=== PATIENT | female | born 1995 | race Caucasian/White ===

== ENCOUNTER 2019-01-17 15:23 | Emergency (ER) | payer BC, OTHER ==
--- OUTSIDE RECORDS SUMMARY | 2019-01-17 15:25 | XMS REPORT | Summary of Care ---
:1995 Author Organization [facility] Address [id number] [place], [place] [id number] [place] [address]- Encounter [facility]) [id number] Date(s): 01/28/18 - 01/28/18 [facility] [address] [place] [address] [address] [place] [address]- [phone] Discharge Disposition: Home or Self Care Attending Physician: Brittney Torres MD Vital Signs Most recent to oldest [Reference Range]: 1 Height 175.26 cm (01/28/18 10:42 AM) Blood Pressure [90-140/60-90 mmHg] 118/82 mmHg (01/28/18 10:42 AM) Peripheral Pulse Rate [60-100 bpm] 132 bpm *HI* (01/28/18 10:42 AM) Weight 104.545 kg (01/28/18 10:42 AM) Body Mass Index 34.04 m2 (01/28/18 10:42 AM) Problem List No data available for this section Allergies, Adverse Reactions, Alerts Substance Reaction Severity Status NKDA Active Medications ethinyl estradiol 0 Refill(s) Start Date: 01/28/18 Status: Orderedlevothyroxine 50 mcg (0.05 mg) oral tablet 50 microgram=1 tab, PO, Daily, 0 Refill(s) Start Date: 01/28/18 Status: Orderedmetoprolol tartrate 25 mg oral tablet 25 mg=1 tab, PO, Daily, 0 Refill(s) Start Date: 01/28/18 Status: Orderedtriamcinolone ACETONIDE 40 mg/mL injectable suspension 20 mg, Route: intra-ARTICULAR, ONCE, Dosing Weight 104.545, kg, Start date: 06/16 10:58:00 CDT, Stop date: 01/28/18 10:58:00 CDT Start Date: 01/28/18 Stop Date: 01/28/18 Status: Completed Results No data available for this section Immunizations No data available for this section Procedures Procedure Date Related Diagnosis Body Site Status Arthrocentesis, aspiration and/or 01/28/18 Completed injection, major joint or bursa (eg, shoulder, hip, knee, subacromial bursa); without ultrasound guidance Meniscal repair Completed [place] tooth Completed Social History Social History Type Response Substance Abuse Use: None. Employment/School Status: Employed. 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 Alcohol Current Smoking Status Never smoker; Exposure to Tobacco Smoke None; Cigarette Smoking Last 365 Days No; Reg Smoking Cessation Counseling No entered on: 01/28/18 Assessment and Plan No data available for this section
--- OUTSIDE RECORDS SUMMARY | 2019-01-17 15:25 | XMS REPORT | Continuity of Care Document ---
:1995 Author Organization [facility] Care Team Providers Name Role Phone [facility] Unavailable Unavailable Problems No Data Provided for This Section Medications Medication Details Route Status Patient Ordering Order Source Instructions Provider Date triamcinolone 20 mg, Inactive ACETONIDE 40 Route: 018 Medical mg/mL injectable intra-[facility] Group suspension CULAR, ONCE, Dosing Weight 104.545, kg, Start date: 01/28/18 10:58:00 CDT, Stop date: 01/28/18 10:58:00 CDT metoprolol 25 mg=1 Active tartrate 25 mg tab, PO, 018 Medical oral tablet Daily, 0 Group Refill(s) levothyroxine 50 50 Active mcg (0.05 mg) microgram= 018 Medical oral tablet 1 tab, PO, Group Daily, 0 Refill(s) Ethinyl 0 Active Estradiol Refill(s) 018 Medical Group Allergies, Adverse Reactions, Alerts No Known Medication Allergies Immunizations No Data Provided for This Section Results No Data Provided for This Section Pathology Reports No Data Provided for This Section Diagnostic Reports No Data Provided for This Section Consultation Notes No Data Provided for This Section Discharge Summaries No Data Provided for This Section History and Physicals No Data Provided for This Section Vital Signs Vital Sign Value Date Comments Source BMI Calculated 34.04 01/28/2018 [facility] Group Weight 104.545 01/28/2018 Medical Group Height 175.26 cm 01/28/2018 Medical Group Heart Rate 132 01/28/2018 [facility] Group Systolic (mm Hg) 118 01/28/2018 [facility] Diastolic (mm Hg) 82 01/28/2018 [facility] Group Encounters Location Location Encounter Encounter Reason Attending ADM DC Status Source Details Type Number For Provider Date Date Visit Outpatient [id number] REHAL 01/28 [facility] Outpatient [id number] Rehal 01/28 01/29 [facility] [place] Procedures Procedure Code Date Perfomer Comments Source Arthrocentesis, 01/28/2018 Medical aspiration and/or Group injection, major joint or bursa (eg, shoulder, hip, knee, subacromial bursa); without ultrasound guidance Meniscal repair [id number] Medical Group [place] tooth [id number] [facility] Assessment and Plan No Data Provided for This Section Plan of Care No Data Provided for This Section Social History Social History Date Source Social History TypeResponse 01/28/2018 [facility] Group Substance Abuse Use: None. Employment/School Status: Employed. 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 Alcohol Current Smoking Status Never smoker; Exposure to Tobacco Smoke None; Cigarette Smoking Last 365 Days No; Reg Smoking Cessation Counseling No entered on: 01/28/18 Family History No Data Provided for This Section Advance Directives No Data Provided for This Section Functional Status No Data Provided for This Section
[2019-01-17] MEDS ORDERED: NA CHLORIDE 0.9% 1,000 ML ONE (15:48)
[2019-01-17 16:08] LABS: Hematocrit 38.2 % (36.0-45.0); RBC Red Blood Cell Count 4.38 M/uL (3.86-4.86)
[2019-01-17 16:09] LABS: Absolute Lymphocytes (CBC) 1.7 K/uL (0.7-4.9); Basophils % 0.8 % (0-1.3); Lymphocytes % 23.1 % (15.3-44.8); MPV 9.6 fL (7.6-11.3)
--- NOTE | 2019-01-17 16:19 | RAD REPORT ---
EXAM DESCRIPTION: CT - Stone Protocol - 01/17/2019 4:11 pm CLINICAL HISTORY: Flank pain. FLANK PAIN COMPARISON: <Comparisons> TECHNIQUE: Axial images were obtained without oral or IV contrast. Lack of contrast limits solid org an and vascular assessment. The [id number] spans the entirety of the system partially obscuring uppermost abdomen and lung bases. Coronal reformatted images were obtained and reviewed. All CT scans are performed using dose optimization technique as appropriate and may include automated exposure control or mA/KV adjustment according to patient size. FINDINGS: The lower lung jacobs are clear. Imaged portions of the liver and spleen show no suspicious findings on non-contrast imaging. The panc reas and adrenal glands are normal. No pathologic lymphadenopathy in the abdomen or pelvis. No urinary tract stones or obstructive uropathy. No bowel obstruction, free air, free fluid or abscess. Normal appendix noted. No significant bony abnormality. IMPRESSION: No urinary tract stones or obstructive uropathy.
[2019-01-17 16:25] LABS: Albumin 4.1 g/dL (3.4-5.0); Bilirubin Direct 0.2 mg/dL (0-0.2); Bilirubin Total 0.6 mg/dL (0.2-1.0); Potassium 3.7 mmol/L (3.5-5.1); Protein, Total 7.9 g/dL (6.4-8.2)
[2019-01-17] MEDS ORDERED: KETOROLAC 30 MG/ML INJ ONE (16:30)
[2019-01-17] MEDS ORDERED: CYCLOBENZAPRINE 10 MG TAB ONE (17:03)
--- NOTE | 2019-01-17 17:42 | EDPHYS ---
Physician Documentation [facility] Name: Vandana Fortune Age: 23 yrs Sex: Female : 1995 Arrival Date: 01/17/2019 Time: 15:25 Bed 20 Private MD: ED Physician Conrad Cash HPI: 01/17 16:00 This 23 yrs old Female presents to ER via Ambulatory with complaints of Back pm1 Pain. 16:00 The patient presents with pain that is acute. The symptoms are located in the right mid pm1 back. Onset: The symptoms/episode began/occurred 2 day(s) ago. The pain does not radiate. Associated signs and symptoms: The patient has no apparent associated signs or symptoms, Pertinent negatives: abdominal pain, chest pain, dysuria, fever, nausea, vomiting. The problem was sustained from unknown cause. Modifying factors: The patient symptoms are alleviated by nothing, the patient symptoms are aggravated by bending. Severity of symptoms: in the emergency department the symptoms are unchanged. The patient has not experienced similar symptoms in the past. The patient has not recently seen a physician. 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 - Social history:: Smoking status: Patient/guardian denies using tobacco. - Ebola Screening: : No symptoms or risks identified at this time. ROS: 16:00 Constitutional: Negative for fever, chills, and weight loss, Neck: Negative for injury, pm1 pain, and swelling, Cardiovascular: Negative for chest pain, palpitations, and edema, Respiratory: Negative for shortness of breath, cough, wheezing, and pleuritic chest pain, Abdomen/GI: Negative for abdominal pain, nausea, vomiting, diarrhea, and constipation. 16:00 : Negative for injury, bleeding, discharge, and swelling, MS/Extremity: Negative for injury and deformity, Skin: Negative for injury, rash, and discoloration, Neuro: Negative for headache, weakness, numbness, tingling, and seizure. 16:00 Back: Positive for pain with movement, of the right mid back. Exam: 16:00 Constitutional: This is a well developed, well nourished patient who is awake, alert, pm1 and in no acute distress. Head/Face: Normocephalic, atraumatic. Eyes: Pupils equal round and reactive to light, extra-ocular motions intact. Lids and lashes normal. Conjunctiva and sclera are non-icteric and not injected. Cornea within normal limits. Periorbital areas with no swelling, redness, or edema. ENT: Nares patent. No nasal discharge, no septal abnormalities noted. Tympanic membranes are normal and external auditory canals are clear. Oropharynx with no redness, swelling, or masses, exudates, or evidence of obstruction, uvula midline. Mucous membranes moist. Neck: Trachea midline, no thyromegaly or masses palpated, and no cervical lymphadenopathy. Supple, full range of motion without nuchal rigidity, or vertebral point tenderness. No Meningismus. Chest/axilla: Normal chest wall appearance and motion. Nontender with no deformity. No lesions are appreciated. Cardiovascular: Regular rate and rhythm with a normal S1 and S2. No gallops, murmurs, or rubs. Normal PMI, no JVD. No pulse deficits. Respiratory: Lungs have equal breath sounds bilaterally, clear to auscultation and percussion. No rales, rhonchi or wheezes noted. No increased work of breathing, no retractions or nasal flaring. Abdomen/GI: Soft, non-tender, with normal bowel sounds. No distension or tympany. No guarding or rebound. No evidence of tenderness throughout. 16:00 Skin: Warm, dry with normal turgor. Normal color with no rashes, no lesions, and no evidence of cellulitis. MS/ Extremity: Pulses equal, no cyanosis. Neurovascular intact. Full, normal range of motion. 16:00 Back: normal spinal alignment noted, muscle spasm, is appreciated in the right mid back. 16:00 Neuro: Orientation: is normal, Motor: is normal, moves all fours, Sensation: is normal, no obvious gross deficits, Gait: is steady, at a normal pace, without difficulty. Vital Signs: 15:31 BP 148 / 106; Pulse 104; Resp 16; Temp 98.4; Pulse Ox 100% on R/A; Weight 104.33 kg; la1 Height 5 ft. 9 in. (175.26 cm); 15:50 BP 137 / 83; Pulse 79; Resp 18; Pulse Ox 99% on R/A; Pain 4/10; em 17:00 BP 124 / 74; Pulse 79; Resp 16; Pulse Ox 99% on R/A; Pain 3/10; em 17:56 BP 137 / 77; Pulse 87; Resp 19; Pulse Ox 99% on R/A; Pain 4/10; em 15:31 Body Mass Index 33.96 (104.33 kg, 175.26 cm) la1 MDM: 15:41 Patient medically screened. pm1 16:07 Data reviewed: vital signs. Data interpreted: Pulse oximetry: on room air is 100 %. pm1 Interpretation: normal. 17:35 Counseling: I had a detailed discussion with the patient and/or guardian regarding: the pm1 historical points, exam findings, and any diagnostic results supporting the discharge/admit diagnosis, lab results, radiology results, the need for outpatient follow up, to return to the emergency department if symptoms worsen or persist or if there are any questions or concerns that arise at home. 01/17 15:41 Order name: Basic Metabolic Panel; Complete Time: 16:28 pm01/17 15:41 Order name: CBC with Diff; Complete Time: 16:28 pm01/17 15:41 Order name: Creatinine for Radiology; Complete Time: 16:28 pm01/17 15:41 Order name: Hepatic Function; Complete Time: 16:28 pm01/17 15:41 Order name: Lipase; Complete Time: 16:28 pm01/17 15:55 Order name: Urine Dipstick--Ancillary (enter results) 01/17 15:41 Order name: CT Stone Protocol; Complete Time: 16:28 pm01/17 15:41 Order name: IV Saline Lock; Complete Time: 16:16 pm01/17 15:41 Order name: Labs collected and sent; Complete Time: 16:16 pm01/17 15:41 Order name: Urine Dipstick-Ancillary (obtain specimen); Complete Time: 15:46 pm01/17 15:55 Order name: Urine --Ancillary (enter results) 01/17 15:41 Order name: Urine Test (obtain specimen); Complete Time: 15:46 pm1 Administered Medications: 15:50 Drug: NS 0.9% 1000 ml Route: IV; Rate: 1000 ml; Site: right antecubital; em 17:06 Follow up: IV Status: Completed infusion; IV Intake: 1000ml em 16:37 Drug: TORadol 30 mg Route: IVP; Site: right antecubital; aa5 16:55 Follow up: Response: No adverse reaction; Pain is unchanged, physician notified em 17:05 Drug: Flexeril 10 mg Route: PO; em 17:55 Follow up: Response: No adverse reaction; Pain is decreased em Disposition: 01/18 07:13 Co-signature as Attending Physician, Conrad Cash MD. ma2 Disposition: 01/17/19 17:42 Discharged to Home. Impression: Back pain, Muscle spasm of back. - Condition is Stable. - Discharge Instructions: Back Pain, Adult, Muscle Cramps and Spasms, Back Injury Prevention, [id number], Heat Therapy. - Prescriptions for Naprosyn 500 mg Oral Tablet - take 1 tablet by ORAL route 2 times per day take with food; 30 tablet. Tylenol- Codeine #3 300-30 mg Oral Tablet - take 2 tablets by ORAL route every 6 hours As needed; 20 tablet. Cyclobenzaprine 10 mg Oral Tablet - take 1 tablet by ORAL route every 8 hours As needed; 30 tablet. - Medication Reconciliation Form, Thank You Letter, Antibiotic Education, Prescription Opioid Use form. - Follow up: Emergency Department; When: As needed; Reason: Worsening of condition. Follow up: Private Physician; When: 2 - 3 days; Reason: Recheck today's complaints, Continuance of care, Re-evaluation by your physician. - Problem is new. - Symptoms have improved. Signatures: Dispatcher [employer] EDKS Cody Perla, UNDERGRADUATE INTERN UNDERGRADUATE INTERN Yolande Fernandez RN RN aa5 Yuan Phelps RN RN la1 Yang Lynch, COMMUNICABLE DISEASE SPECIALIST COMMUNICABLE DISEASE SPECIALIST pm1 Conrad Cash MD MD ma2 Corrections: (The following items were deleted from the chart) 01/17 17:58 17:42 01/17/2019 17:42 Discharged to Home. Impression: Back pain; Muscle spasm of back. em Condition is Stable. Forms are Medication Reconciliation Form, Thank You Letter, Antibiotic Education, Prescription Opioid Use. Follow up: Emergency Department; When: As needed; Reason: Worsening of condition. Follow up: Private Physician; When: 2 - 3 days; Reason: Recheck today's complaints, Continuance of care, Re-evaluation by your physician. Problem is new. Symptoms have improved. pm1
--- NOTE | 2019-01-17 17:42 | ER ---
Nurse's Notes [facility] Name: Vandana Fortune Age: 23 yrs Sex: Female : 1995 Arrival Date: 01/17/2019 Time: 15:25 Bed 20 Private MD: Diagnosis: Back pain;Muscle spasm of back Presentation: 01/17 15:31 Presenting complaint: Patient states: Back pain for about the past 2 weeks, went away la1 for a few days and came back, pain in right mid back. Transition of care: patient was not received from another setting of care. Onset of symptoms was January 17, 2019. Risk Assessment: Do you want to hurt yourself or someone else? Patient reports no desire to harm self or others. Initial Sepsis Screen: Does the patient meet any 2 criteria? No. Patient's initial sepsis screen is negative. Does the patient have a suspected source of infection? No. Patient's initial sepsis screen is negative. Care prior to arrival: None. 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 - Social history:: Smoking status: Patient/guardian denies using tobacco. - Ebola Screening: : No symptoms or risks identified at this time. Screenin:50 Abuse screen: Denies threats or abuse. Nutritional screening: No deficits noted. em Tuberculosis screening: No symptoms or risk factors identified. Fall Risk None identified. Assessment: 15:45 General: Appears in no apparent distress. comfortable, Behavior is calm, cooperative. em Pain: Complains of pain in right mid back Pain currently is 4 out of 10 on a pain scale. Quality of pain is described as sharp, Pain began 2 weeks Is intermittent. Neuro: Level of Consciousness is awake, alert, obeys commands, Oriented to person, place, time, situation. Cardiovascular: Capillary refill < 3 seconds Patient's skin is warm and dry. Respiratory: Respiratory effort is even, unlabored, Respiratory pattern is regular, symmetrical, Breath sounds are clear bilaterally. GI: Abdomen is flat, Abd is soft and non tender X 4 quads. Patient currently denies nausea, vomiting. : Urine is clear, Denies burning with urination, discharge. Derm: Skin is intact, is healthy with good turgor, Skin is pink, warm \T\ dry. Musculoskeletal: Capillary refill < 3 seconds, Range of motion: intact in all extremities. 15:45 Reassessment: I agree with assessment completed by Cody Perla LVN . aa5 16:55 Reassessment: Patient appears in no apparent distress at this time. Patient and/or em family updated on plan of care and expected duration. Pain level reassessed. Patient is alert, oriented x 3, equal unlabored respirations, skin warm/dry/pink. Patient states symptoms have not improved. Vital Signs: 15:31 BP 148 / 106; Pulse 104; Resp 16; Temp 98.4; Pulse Ox 100% on R/A; Weight 104.33 kg; la1 Height 5 ft. 9 in. (175.26 cm); 15:50 BP 137 / 83; Pulse 79; Resp 18; Pulse Ox 99% on R/A; Pain 4/10; em 17:00 BP 124 / 74; Pulse 79; Resp 16; Pulse Ox 99% on R/A; Pain 3/10; em 17:56 BP 137 / 77; Pulse 87; Resp 19; Pulse Ox 99% on R/A; Pain 4/10; em 15:31 Body Mass Index 33.96 (104.33 kg, 175.26 cm) la1 ED Course: 15:25 Patient arrived in ED. as 15:29 Arm band placed on left wrist. la1 15:31 Triage completed. la1 15:34 Cody Perla LVN is Primary Nurse. em 15:35 Yang Lynch NP is PHCP. pm1 15:35 Conrad Cash MD is Attending Physician. pm1 15:44 Radiology exam delayed due to test not completed at this time. mw3 15:50 Patient has correct armband on for positive identification. Bed in low position. Call em light in reach. Adult w/ patient. Pulse ox on. NIBP on. 15:50 Initial lab(s) drawn, by me, sent to lab. Inserted saline lock: 20 gauge in right em antecubital area, using aseptic technique. Blood collected. 16:12 CT completed. Patient tolerated procedure well. Patient moved back from CT. bq 16:12 CT Stone Protocol In Process Unspecified. EDMS 17:57 No provider procedures requiring assistance completed. IV discontinued, intact, em bleeding controlled, No redness/swelling at site. Pressure dressing applied. Administered Medications: 15:50 Drug: NS 0.9% 1000 ml Route: IV; Rate: 1000 ml; Site: right antecubital; em 17:06 Follow up: IV Status: Completed infusion; IV Intake: 1000ml em 16:37 Drug: TORadol 30 mg Route: IVP; Site: right antecubital; aa5 16:55 Follow up: Response: No adverse reaction; Pain is unchanged, physician notified em 17:05 Drug: Flexeril 10 mg Route: PO; em 17:55 Follow up: Response: No adverse reaction; Pain is decreased em Intake: 17:06 IV: 1000ml; Total: 1000ml. em Outcome: 17:42 Discharge ordered by MD. pm1 17:57 Discharged to home ambulatory, with family. em 17:57 Condition: good 17:57 Discharge instructions given to patient, family, Instructed on discharge instructions, follow up and referral plans. no drinking with medication, no driving heavy equipment, medication usage, Demonstrated understanding of instructions, follow-up care, medications, Prescriptions given X 3. 17:58 Patient left the ED. em Signatures: Dispatcher [employer] EDMS Racheal Phillips Edgar, VAUDEVILLE ACTOR VAUDEVILLE ACTOR Connie Grant Audri, RN RN aa5 Yuan Phelps RN RN la1 Yang Lynch, SHEET FED PRINTER SHEET FED PRINTER pm1 Isabell Delarosa 3
[2019-01-17 18:08] LABS: Urine Blood NEGATIVE (NEG); Urine Glucose NEGATIVE (NEG); Urine Protein NEGATIVE (NEG)
[2019-01-17 18:38] VITALS: TEMP 98.4
[2019-01-17 18:39] VITALS: O2SAT 99
[2019-01-17 18:42] VITALS: BP 137/77
== END 2019-01-17 17:58 | disposition home or self-care (01) ==
LOC: ER 15:23
DX: M62.830 Muscle spasm of back (principal)
CPT/HCPCS: 96361; 85025; 80048; 36415; 81025; 80076; 81003; 83690; 76377; 74176; 96374; 99284; J7030